=== PATIENT | female | born 1970 | race Caucasian/White ===

== ENCOUNTER 2018-12-24 13:01 | Emergency (ER) | payer OTHER, MEDICARE, MEDICAID ==
[~2018-12-24] VITALS: Ht 170.2 cm; Wt 72.6 kg
[~2018-12-24 13:01] MED LIST: HYDR1TAB PO; LISI10TA2 PO; METH-53 PO
[2018-12-24] MEDS ORDERED: CYCL10TA9 PO (13:46)
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
[2018-12-24 13:50] VITALS: BP 121/77
--- OUTSIDE RECORDS SUMMARY | 2018-12-25 01:26 | XMS REPORT ---
Author Author SAVANA PENA Organization [employer] Address Unknown Phone Unavailable Care Team Providers Care Digital Media Director Name Role Phone SAVANA PENA CP Unavailable Allergies No Known Allergies Problems Problem Type Condition Code Onset Dates Condition Status Problem Fibromyalgia M79.7 Active Problem Fatigue R53.83 Active Problem Chronic pain G89.29 Active Medications No Known Medications Results No Known Results Summary Purpose [employer] Submission
--- OUTSIDE RECORDS SUMMARY | 2018-12-25 01:26 | XMS REPORT ---
Author Author SAVANA PENA Organization [employer] Address Unknown Phone Unavailable Care Team Providers Care Parachute Repairer Name Role Phone SAVANA PENA CP Unavailable Allergies, Adverse Reactions, Alerts Substance Reaction Event Type N.K.D.A. Info Not Available Non Drug Allergy Problems Problem Type Condition Code Onset Dates Condition Status Problem Fibromyalgia M79.7 Active Problem Fatigue R53.83 Active Problem Chronic pain G89.29 Active Assessment Fatigue R53.83 Active Assessment Tobacco abuse Z72.0 Active Assessment Chronic pain G89.29 Active Assessment Fibromyalgia M79.7 Active Medications Medication Code System Code Instructions Start Date End Date Status Dosage Percocet [facility] [address]-61 10-325 MG Orally 3 times a day prn 1 tablet as needed Xanax [facility] [address]-52 1 MG Orally 4 times a day prn 1 tablet Fentanyl [facility] [address]-83 100 MCG/HR Transdermal every 48 hours 1 patch to skin Procedures Procedure Coding System Code Date Office Visit, Est Pt., Level 3 CPT-4 37620 May 14, 2015 Vital Signs Date/Time: May 14, 2015 Temperature 98.1 F Weight 131.7 lbs Height 68.0 in BMI 20.02 Index Blood Pressure Diastolic 60 mmHg Blood Pressure Systolic 130 mmHg Cardiac Monitoring Heart Rate 78 bpm Results No Known Results Summary Purpose [employer] Submission
== END 2018-12-24 13:52 | disposition home or self-care (01) ==
LOC: EDUNIT# 13:01 → ER 13:03
DX: S16.1XXA Strain of muscle, fascia and tendon at neck level, initial encounter (principal); V67.9XXA Unspecified occupant of heavy transport vehicle injured in collision with fixed or stationary object in traffic accident, initial encounter
CPT/HCPCS: 99282